=== PATIENT | female | born 1990 | race Caucasian/White ===

== ENCOUNTER 2024-01-24 04:58 | Emergency (ER) | payer BC, SELFPAY ==
[2024-01-24 05:01] VITALS: BP 115/90
--- NOTE | 2024-01-24 05:19 | ED.GENMED ---
History of Present Illness
<Zay Goel DO - Last Filed: 01/24/24 06:26>
General
Chief Complaint: Abdominal Pain
Source: patient and family
Exam Limitations: none
Time Seen by Provider: 01/24/24 05:14
Travel History
Have you had any contact with someone who has COVID-19?: No
Do you have any symptoms of coronavirus? Fever > 100 degrees, chills, cough, shortness of breath, sore throat, loss of taste or smell, muscle aches, or headache?: No
History of Present Illness
History of Present Illness:
33-year-old female presents with right upper quad abdominal pain. pt states that she had eaten some pizza and had some pain and seemed to be off normal got worse worse and constant at night. Patient admits that she had a 3 weeks ago but
has been healing well. Pain is severe in the right upper quadrant and epigastric area. She does admit to nausea. No fevers. Pain does radiate to her right back. She does have retained products required D&C
Past History
<Zay Goel DO - Last Filed: 01/24/24 06:26>
Past History
ED Past Surgical History:
Phy Exam
<Zay Goel DO - Last Filed: 01/24/24 06:26>
Physical Exam
Physical Exam:
CONSTITUTIONAL Patient alert and oriented to person, place and time. Well-appearing. Vital signs reviewed.
HEAD atraumatic, normocephalic.
EYES eyelids normal to inspection, Extraocular muscles intact, Conjunctiva normal, Sclera normal.
NECK normal range of motion, Trachea midline, no jugular venous distention.
RESPIRATORY CHEST No respiratory distress noted, Chest expansion equal, Bilateral breath sounds clear.
CARDIOVASCULAR regular rate and rhythm, Heart sounds normal.
ABDOMEN moderate to severe right upper quadrant tenderness, positive Zhang
BACK normal inspection, no obvious deformities
UPPER EXTREMITY range of motion normal, Motor strength normal, no cyanosis, no edema.
LOWER EXTREMITY range of motion normal, Motor strength normal, no cyanosis, no edema.
NEURO Speech normal, No focal motor deficits, [place] coma scale 15, Memory normal, Cranial Nerves intact to screening exam.
SKIN skin warm, dry, and normal in color.
Course
<Zay Goel, DO - Last Filed: 01/24/24 06:26>
Orders/Labs/Results
Orders:
Orders
01/24/24 05:10
Test Result ONCE
01/24/24 05:18
US Abdomen Complete/Upper Urgent
Comment:
Reason For Exam: RUQ abd pain
01/24/24 05:19
Ketorolac [Toradol] 15 mg IV NOW STA
01/24/24 05:24
Complete Blood Count/With Diff Urgent
Comprehensive Metabolic Panel Urgent
HCG, Serum Qualitative Screen Urgent
Lipase Urgent
Comment: ADD ON
Urine Microscopic Reflex Cult Urgent
Urine Reflex Culture from UA [Urinalysis Reflex To Culture] Urgent
Date Specimen was Collected: 01/24/24
Time Specimen was Collected: 05:09
Urine Culture Urgent
GIRISH Source: U
Specimen Description:
Date Specimen was Collected: 01/24/24
Time Specimen was Collected: 05:09
01/24/24 05:30
0.9% Sodium Chloride 1000 ml [Nss] 1,000 ml IV BOLUS
Ondansetron Injectable [Zofran] 4 mg IV NOW STA
01/24/24 05:52
Add On- LAB Urgent
Tests Added?: Lipase
01/24/24 07:13
Ondansetron Injectable [Zofran] 4 mg .ROUTE .STK-MED ONE
01/24/24 07:14
Ondansetron Injectable [Zofran] 4 mg IV NOW STA
01/24/24 08:09
Diphenhydramine [Benadryl] 25 mg IV NOW STA
Metoclopramide [Reglan] 10 mg IV NOW STA
Abnormal Lab Results
01/24/24
05:24
WBC 12.6 H 10^3/uL
(4.8-10.8)
RBC 3.96 L 10^6/uL
(4.20-5.40)
Hgb 11.0 L g/dL
(12.0-16.0)
Hct 33.0 L %
(37.0-47.0)
MPV 10.8 H fL
(7.4-10.4)
Abs Immat Gran (auto) 0.1 H 10^3/uL
(0-0.05)
Absolute Neuts (auto) 9.4 H 10^3/uL
(1.4-6.5)
Absolute Monos (auto) 0.7 H 10^3/uL
(0.1-0.6)
Lymphocytes % 16.2 L %
(20.5-51.1)
Glucose 114 H mg/dl
(70-99)
Ur Occult Blood Reflex 3+ A
(Negative)
Leukocyte Esterase Rfl Trace A
(Negative)
Urine RBC 3-6 A /HPF
(0-2)
Urine Bacteria (Reflex) Many A
(Negative)
01/24/24 05:24
01/24/24 05:24
Vital Signs
Initial and Last Documented VS:
Initial Vital Signs
Temp Pulse Resp BP Pulse Ox
97.7 F 84 22 115/90 100
01/24/24 05:01 01/24/24 05:01 01/24/24 05:01 01/24/24 05:01 01/24/24 05:01
Last Documented Vital Signs
Temp Pulse Resp BP Pulse Ox
97.7 F 89 16 116/72 99
01/24/24 05:01 01/24/24 08:30 01/24/24 08:30 01/24/24 08:30 01/24/24 08:30
<Alberto MaikCarleen Diego, DO - Last Filed: 01/24/24 14:13>
Orders/Labs/Results
Orders:
Orders
01/24/24 05:10
Test Result ONCE
01/24/24 05:18
US Abdomen Complete/Upper Urgent
Comment:
Reason For Exam: RUQ abd pain
01/24/24 05:19
Ketorolac [Toradol] 15 mg IV NOW STA
01/24/24 05:24
Complete Blood Count/With Diff Urgent
Comprehensive Metabolic Panel Urgent
HCG, Serum Qualitative Screen Urgent
Lipase Urgent
Comment: ADD ON
Urine Microscopic Reflex Cult Urgent
Urine Reflex Culture from UA [Urinalysis Reflex To Culture] Urgent
Date Specimen was Collected: 01/24/24
Time Specimen was Collected: 05:09
Urine Culture Urgent
GIRISH Source: U
Specimen Description:
Date Specimen was Collected: 01/24/24
Time Specimen was Collected: 05:09
01/24/24 05:30
0.9% Sodium Chloride 1000 ml [Nss] 1,000 ml IV BOLUS
Ondansetron Injectable [Zofran] 4 mg IV NOW STA
01/24/24 05:52
Add On- LAB Urgent
Tests Added?: Lipase
01/24/24 07:13
Ondansetron Injectable [Zofran] 4 mg .ROUTE .STK-MED ONE
01/24/24 07:14
Ondansetron Injectable [Zofran] 4 mg IV NOW STA
01/24/24 08:09
Diphenhydramine [Benadryl] 25 mg IV NOW STA
Metoclopramide [Reglan] 10 mg IV NOW STA
Abnormal Lab Results
01/24/24
05:24
WBC 12.6 H 10^3/uL
(4.8-10.8)
RBC 3.96 L 10^6/uL
(4.20-5.40)
Hgb 11.0 L g/dL
(12.0-16.0)
Hct 33.0 L %
(37.0-47.0)
MPV 10.8 H fL
(7.4-10.4)
Abs Immat Gran (auto) 0.1 H 10^3/uL
(0-0.05)
Absolute Neuts (auto) 9.4 H 10^3/uL
(1.4-6.5)
Absolute Monos (auto) 0.7 H 10^3/uL
(0.1-0.6)
Lymphocytes % 16.2 L %
(20.5-51.1)
Glucose 114 H mg/dl
(70-99)
Ur Occult Blood Reflex 3+ A
(Negative)
Leukocyte Esterase Rfl Trace A
(Negative)
Urine RBC 3-6 A /HPF
(0-2)
Urine Bacteria (Reflex) Many A
(Negative)
01/24/24 05:24
01/24/24 05:24
Vital Signs
Initial and Last Documented VS:
Initial Vital Signs
Temp Pulse Resp BP Pulse Ox
97.7 F 84 22 115/90 100
01/24/24 05:01 01/24/24 05:01 01/24/24 05:01 01/24/24 05:01 01/24/24 05:01
Last Documented Vital Signs
Temp Pulse Resp BP Pulse Ox
97.7 F 89 16 116/72 99
01/24/24 05:01 01/24/24 08:30 01/24/24 08:30 01/24/24 08:30 01/24/24 08:30
<Zay Goel DO - Last Filed: 01/24/24 06:26>
MDM/Problems Addressed
MDM/Problems Addressed:
Biliary colic
<Zay Goel DO - Last Filed: 01/24/24 06:26>
*Pulse Oximetry
Patient hypoxic: no
*Critical Care Note
Total Time (30-74mins, 75-104mins- exclusive of procedures): Not Applicable
Data Reviewed
Source: patient and family
Further Testing Considered But Not Given:
Consider CT but suspect biliary colic. Ultrasound pending
<Zay Goel DO - Last Filed: 01/24/24 06:26>
Patient Management
Escalation/DeEscalation of care consider admission/obs:
Patient did proceed to vomiting. Now does feel better after Zofran and IV Toradol. IV fluids given. Ultrasound pending. Dispo per ultrasound
<Alberto Diego DO - Last Filed: 01/24/24 14:13>
Update Note
Update Note:
u/s shows distended gall bladder but no signs of stones or inflammation. Pt feeling better after a dose of Reglan. Stable for discharge home......suspect biliary colic.
f/u with primary and given name for surgery for follow up if recurring.
ED Attending Note
<Zay Goel DO - Last Filed: 01/24/24 06:26>
-
Portions of this chart may have been created with voice recognition software.� Occasional wrong word or��sound alike� substitutions may have occurred due to the inherent limitations of voice recognition software.
Discharge Plan
Departure
Patient Disposition: Home (Routine Discharge)
Date of Disposition: 01/24/24
Time of Disposition: 09:10
Patient with high blood pressure during this ER visit?: No
Condition: Good
Discharge Problem:
Abdominal pain, Biliary colic
Instructions: Gallstones (DC), Abdominal Pain
Referrals:
Stone Lang MD [Active] -
Jed Garcia, [Family Provider] -
Activity Restrictions/Additional Instructions:
I suspect your abdominal pain as due to biliary colic (spasm of the gall bladder). Stones are not seen on the ultrasound but sometimes they are too small to see. This sometimes happens after . I have given you the name of a surgeon that
you can follow up with, particularly if you have more episodes.
Interventions
Interventions:
*Risk Screen - Suicide Last Done: 01/24/24 09:06
*General Assessment Last Done: 01/24/24 07:19
*Neglect/Abuse Screening Last Done: 01/24/24 09:06
ED- Fall Risk Assessment Last Done: 01/24/24 05:40
*ED COVID-19 Vaccine History Last Done: 01/24/24 07:19
*Nursing Disposition Last Done: 01/24/24 09:49
JU-Kwpoat-Dnacieyhjt Assessment Last Done: 01/24/24 05:40
Discharge Date and Time
Discharge Date/Time: 01/24/24 09:50
Print Language: CAMBODIAN
[2024-01-24] MEDS: TORADOL 15 MG IV (05:23)
[2024-01-24] MEDS: NSS 1000 IV (05:31)
[2024-01-24] MEDS: ZOFRAN 4 MG IV ×2 (05:31→07:14)
[2024-01-24 05:38] LABS: % Basophils 0.4 % (0-2); % Eosinophils 2.9 % (0-6); % Immature Granulocytes 0.4 % (0-0.5); % Lymphocytes 16.2 % (20.5-51.1); % Monocytes 5.2 % (1.7-9.3); % Neutrophils 74.9 % (42.2-75.2); Absolute Basophils 0.1 10^3/uL (0-0.2); Absolute Eosinophils 0.4 10^3/uL (0-0.7); Absolute Immature Granulocytes 0.1 10^3/uL (0-0.05); Absolute Monocytes 0.7 10^3/uL (0.1-0.6); Absolute Neutrophils 9.4 10^3/uL (1.4-6.5); Mean Corp Hgb Conc. 33.3 g/dL (33.0-37.0); Mean Corpuscular Hgb 27.8 pg (27.0-31.0); Mean Corpuscular Volume 83.3 fL (81.0-99.0); Mean Platelet Volume 10.8 fL (7.4-10.4); Nucleated Red Blood Cells % 0 %; Platelet Count 216 10^3/uL (130-400); Red Blood Cell Count 3.96 10^6/uL (4.20-5.40); Red Cell Dist. Width 12.3 % (11.5-14.5); White Blood Cell Count 12.6 10^3/uL (4.8-10.8)
[2024-01-24 05:51] LABS: HCG, Serum Qualitative Screen Negative
[2024-01-24 05:57] LABS: ALT (SGPT) 15 U/L (0-35); AST (SGOT) 22 U/L (14-36); Albumin 4.2 g/dl (3.5-5.0); Alkaline Phosphatase 111 U/L (38-126); Blood Urea Nitrogen 14 mg/dl (7-17); Calcium 9.8 mg/dl (8.4-10.2); Carbon Dioxide 22 mmol/L (22-30); Chloride 105 mmol/L (98-107); Glucose 114 mg/dl (70-99); Sodium 139 mmol/L (135-145); Total Bilirubin 0.4 mg/dl (0.2-1.3); eGFR > 60.00
[2024-01-24 06:18] LABS: Lipase 146 U/L (23-300)
[2024-01-24] MEDS: BENADRYL 25 MG IV (08:20)
[2024-01-24] MEDS: REGLAN 10 MG IV (08:21)
[2024-01-24 08:30] VITALS: BP 116/72
[2024-01-24 08:30] LABS: Urine Albumin Negative (Neg - Trace); Urine Bilirubin Negative (Negative); Urine Character Clear (Clear); Urine Color Yellow; Urine Glucose Negative (Negative); Urine Ketone Negative (Negative); Urine Leukocyte Trace (Negative); Urine Nitrite Negative (Negative); Urine Occult Blood 3+ (Negative); Urine Urobilinogen Negative (Neg - 1+)
[2024-01-24 08:52] LABS: Urine Bacteria Many (Negative)
== END 2024-01-24 09:50 | disposition home or self-care (01) ==
LOC: EMR 04:58
PROVIDERS: EMERGENCY PHYSICIAN Emergency Medicine; FAMILY PHYSICIAN Family Medicine
DX: R10.11 Right upper quadrant pain (principal); K80.50 Calculus of bile duct without cholangitis or cholecystitis without obstruction
CPT/HCPCS: 99284; 96374; 96375; 96376; 96361; 76700; 80053; 81003; 81015; 83690; 84703; 85025; 87086

== ENCOUNTER → 2024-05-17 07:26 | Outpatient (REF) | payer BC, SELFPAY | LOC: HWRAD 07:26 | PROVIDERS: ATTENDING PHYSICIAN Surgery; FAMILY PHYSICIAN Family Medicine | DX: R10.11 Right upper quadrant pain (principal) | CPT/HCPCS: 76700 ==

== ENCOUNTER 2024-05-31 03:41 | Day surgery (SDC) | payer BC, SELFPAY ==
[2024-05-30 21:53] VITALS: BP 145/93
[2024-05-30 22:12] LABS: % Basophils 0.5 % (0-2); % Eosinophils 1.3 % (0-6); % Immature Granulocytes 0.4 % (0-0.5); % Lymphocytes 24.9 % (20.5-51.1); % Monocytes 6.9 % (1.7-9.3); Absolute Basophils 0.1 10^3/uL (0-0.2); Absolute Eosinophils 0.1 10^3/uL (0-0.7); Absolute Lymphocytes 2.5 10^3/uL (1.2-3.4); Absolute Monocytes 0.7 10^3/uL (0.1-0.6); Absolute Neutrophils 6.6 10^3/uL (1.4-6.5); Hematocrit 37.4 % (37.0-47.0); Hemoglobin 12.7 g/dL (12.0-16.0); Mean Corpuscular Hgb 28.1 pg (27.0-31.0); Mean Corpuscular Volume 82.7 fL (81.0-99.0); Nucleated Red Blood Cells % 0 %; Platelet Count 212 10^3/uL (130-400); Red Blood Cell Count 4.52 10^6/uL (4.20-5.40); Red Cell Dist. Width 13.6 % (11.5-14.5)
[2024-05-30 22:28] LABS: ALT (SGPT) 22 U/L (0-35); AST (SGOT) 25 U/L (14-36); Albumin 4.7 g/dl (3.5-5.0); Alkaline Phosphatase 81 U/L (38-126); Blood Urea Nitrogen 15 mg/dl (7-17); Calcium 9.9 mg/dl (8.4-10.2); Carbon Dioxide 24 mmol/L (22-30); Chloride 102 mmol/L (98-107); Glucose 109 mg/dl (70-99); Potassium 4.4 mmol/L (3.5-5.1); Sodium 141 mmol/L (135-145); Total Bilirubin 0.4 mg/dl (0.2-1.3); Total Protein 7.6 g/dl (6.3-8.2); eGFR > 60.00
[2024-05-30 22:30] LABS: Lipase 121 U/L (23-300)
[2024-05-31] VITALS (18 sets, daily range): BP systolic 104–154; BP diastolic 71–98; BMI 31.1
[2024-05-31] MEDS: ZOFRAN 4 MG IV ×2 (00:42→15:30)
[2024-05-31] MEDS: TORADOL 30 MG IV (00:42)
[2024-05-31] MEDS: NSS 1000 IV (00:43)
--- NOTE | 2024-05-31 01:20 | ED.GENMED ---
History of Present Illness
General
Chief Complaint: Abdominal Pain
Source: patient and spouse
Exam Limitations: none
Time Seen by Provider: 05/31/24 00:00
Nursing documentation reviewed up to this point in time: agreed with
History of Present Illness
History of Present Illness:
33-year-old female presenting to the emergency department today with concerns of right upper quadrant Rich pain persisting over the past few hours. Has had previous issues with her gallbladder and had previous gallbladder stones. Denies any
chest pain shortness breath or fevers. Has had nausea and vomiting.
Past History
Past History
ED Past Surgical History:
Review of Systems
Review of Systems
Allergies reviewed?: Yes
All Other Systems: ROS reviewed and negative except as documented in HPI and ROS
Phy Exam
Physical Exam
Physical Exam:
GENERAL: Alert , in no apparent distress
EYE: pupils equal and reactive
NECK: Supple, no significant adenopathy.
ENT: o/p clr, mmm.
CARDIAC: Regular rate and rhythm .
LUNGS: Clear breath sounds bilaterally, no acute respiratory distress, no wheezes/rales/rhonchi
ABDOMEN: Upper quadrant abdominal tenderness, positive Zhang's. Otherwise soft abdomen.
NEUROLOGICAL: Alert and oriented, no focal neuro deficits
SKIN: Warm and dry, skin intact.
MUSCULOSKELETAL: No edema, well perfused.
PSYCH: Normal and appropriate interaction.
Course
Orders/Labs/Results
Orders:
Orders
05/30/24 21:58
Complete Blood Count/With Diff Urgent
Comprehensive Metabolic Panel Urgent
HCG, Serum Qualitative Screen Urgent
Comment: ADD ON
Lipase Urgent
05/31/24 00:34
US Abdomen Complete/Upper Urgent
Comment:
Reason For Exam: ruq pain
05/31/24 00:35
Add On- LAB Urgent
Tests Added?: hcg serum
0.9% Sodium Chloride 1000 ml [Nss] 1,000 ml IV BOLUS
Ketorolac [Toradol] 30 mg IV NOW STA
Ondansetron Injectable [Zofran] 4 mg IV NOW STA
05/31/24 01:51
HYDROmorphone [Dilaudid] 0.5 mg IV NOW STA
05/31/24 01:53
HYDROmorphone [Dilaudid] 0.5 mg .ROUTE .STK-MED ONE
05/31/24 01:55
Piperacillin/Tazo 3.375 Gram [Zosyn] 3.375 gram in 50 ml IV NOW
Abnormal Lab Results
05/30/24
21:58
MPV 11.0 H fL
(7.4-10.4)
Absolute Neuts (auto) 6.6 H 10^3/uL
(1.4-6.5)
Absolute Monos (auto) 0.7 H 10^3/uL
(0.1-0.6)
Glucose 109 H mg/dl
(70-99)
05/30/24 21:58
05/30/24 21:58
Vital Signs
Initial and Last Documented VS:
Initial Vital Signs
Temp Pulse Resp BP Pulse Ox
97.6 F 70 18 145/93 96
05/30/24 21:53 05/30/24 21:53 05/30/24 21:53 05/30/24 21:53 05/30/24 21:53
Last Documented Vital Signs
Temp Pulse Resp BP Pulse Ox
97.6 F 77 18 130/80 97
05/30/24 21:53 05/31/24 02:03 05/30/24 21:53 05/31/24 02:03 05/31/24 02:03
MDM/Problems Addressed
MDM/Problems Addressed:
33-year-old female presenting to the emergency department today with concerns of right upper quadrant abdominal pain. Reproducible tenderness to the right upper quadrant. On arrival vital signs are normal patient no distress afebrile normal white
count labs unremarkable. Ultrasound performed showing possible early acute cholecystitis. Patient with worsening right upper quadrant . Patient given dose of IV pain medication but otherwise will be admitted to general surgery service. Case
discussed with general surgery that would like patient n.p.o. given IV fluids and Zosyn. Stable throughout ER stay.
*Critical Care Note
Total Time (30-74mins, 75-104mins- exclusive of procedures): Not Applicable
ED Attending Note
-
Portions of this chart may have been created with voice recognition software.� Occasional wrong word or��sound alike� substitutions may have occurred due to the inherent limitations of voice recognition software.
Discharge Plan
Departure
Patient Disposition: Admit
Date of Disposition: 05/31/24
Time of Disposition: 02:10
Admit to: Med/Surg
Admit to doctor: Gavino
Presentation/result/management discussed w/ accepting MD/DO: Surgery
Patient with high blood pressure during this ER visit?: No
Condition: Good
Covid-19: Not Applicable
Discharge Problem:
Acute cholecystitis
Referrals:
Jed Garcia DO [Family Provider] -
Interventions
Interventions:
*Risk Screen - Suicide Last Done: 05/31/24 00:27
*General Assessment Last Done: 05/30/24 21:53
*ED COVID-19 Vaccine History Last Done: 05/31/24 00:27
UI-Lahszn-Byiayjnlln Assessment Last Done: 05/31/24 00:31
Discharge Date and Time
Print Language: SAMMARINESE
[2024-05-31 01:28] LABS: HCG, Serum Qualitative Screen Negative
[2024-05-31] MEDS: DILAUDID 0.5 MG IV ×2 (01:54→18:05)
[2024-05-31] MEDS: ZOSYN 50 IV ×4 (02:01→21:53)
[2024-05-31] MEDS: FLUSH (NSS) 1 FLUSH IV (07:45)
--- NOTE | 2024-05-31 09:29 | HPS.HSE ---
Family Physician
-
Family Physician: Jed Garcia
Chief Complaint
-
RUQ abdominal pain
History of Present Illness
Patient is a 33 yo F with a PMH of obesity, s/p , and biliary colic who presents with RUQ abdominal pain. Annmarie states that her symptoms began acutely yesterday evening. Currently she states that her pain is improved, but not
completely resolved. Diet yesterday consisted of turkey sandwich with roasted red peppers as well as breaded chicken fingers with rice. Associated nausea or vomiting. No fevers or chills. No jaundice, pale stools, or tea colored urine. Of note,
patient has been followed by myself as an outpatient with recommendation and plans for elective cholecystectomy.
Medical History
Past Medical History
Past Medical History: Reports Other (Obesity)
Past Surgical History: Reports
Social History
Tobacco: Non-smoker
Alcohol: Occasional
Drug: None
Family History
Family History: Other (Cholecystectomy)
Allergies / Home Medications
Allergies reflects when Allergies were last updated in [employer].
Home Medications with original date entered in [employer]
Allergy/Medication List:
NKDA
Review of Systems
-
A 12 point ROS was completed and negative except as noted: Yes
Physical Exam
Vital Signs
Vital Signs
Temp Pulse Resp BP Pulse Ox
98.5 F 64 16 111/71 98
05/31/24 07:39 05/31/24 07:39 05/31/24 07:39 05/31/24 07:39 05/31/24 07:42
Physical Exam
General: Well Developed, Well Nourished and No Apparent Distress
HEENT: NormoCephalic and Anicteric
Respiratory: Non Labored Respirations
Cardiac: Regular Rhythm
GI: Soft, Non Distended, Tender (Mild RUQ, negative Zhang sign) and Other (Nonperitoneal (no rebound or guarding))
Musculoskeletal: No Edema
Neuro: Nonfocal/grossly intact
Laboratory Results
-
05/30/24 21:58
05/30/24 21:58
Laboratory Results
Total Bilirubin 0.4 mg/dl (0.2-1.3) 05/30/24 21:58
AST 25 U/L (14-36) 05/30/24 21:58
ALT 22 U/L (0-35) 05/30/24 21:58
Alkaline Phosphatase 81 U/L (38-126) 05/30/24:58
Lipase 121 U/L (23-300) 05/30/24 21:58
Data Reviewed
-
Ultrasound: Image Personally Visualized and interpreted
Lab Data: Labs Reviewed by me
Old Records: Reviewed
Impression/Plan
-
IMPRESSION:
Patient is a 33 yo F p/w symptomatic cholelithiasis
The natural history and pathophysiology of biliary and stone disease has been previously discussed. Previous plans for outpatient cholecystectomy. Given her persistent symptoms and presentation recommend cholecystectomy during this presentation.
Option for repeat trial of medical management with delayed cholecystectomy were reviewed. Pros and cons of both approaches was discussed. Patient wishes to proceed with cholecystectomy.
Plan for a laparoscopic cholecystectomy with possible cholangiogram. The procedure itself, as well as the risks, benefits, and alternatives was discussed. Specifically, we discussed the risks of bleeding, infection, injury to surrounding
structures (bowel, bile ducts), CBD injury, need for open procedure. Typical postprocedure recovery including 2 weeks no heavy lifting or strenuous activities in the 10 to 20% risks of fluctuation in GI function were discussed. All questions
answered. Consent signed.
PLAN:
-- Laparoscopic cholecystectomy possible cholangiogram
-- NPO, IVF
-- Abx: Zosyn
-- Pain control: Tylenol and IV Dilaudid PRN
-- Admit post-op
--- NOTE | 2024-05-31 09:36 | W.SUR.PREOP ---
Pre-Operative Surgical Note
-
I have examined this patient prior to the performance of the scheduled procedure.
The patient's condition is unchanged from the time of the current History and
Physical and the patient is able to undergo the scheduled procedure.
--- NOTE | 2024-05-31 14:03 | W.IMMPOSTOP ---
Addendum entered and electronically signed by Arley Nickerson MD 05/31/24 14:11:
[facility]# [id number]
Original Note:
Surgical Immed Post Op Note
-
Primary Surgeon: Krishan
Assisting Surgeon: None
Pre-op Diagnosis: Acute cholecystitis
Post-op Diagnosis: Acute cholecystitis
Procedure Performed: Laparoscopic cholecystectomy with IOC
Anesthesia Type: General
Specimen / Cultures:
1. Gallbladder
Estimated Blood Loss: 3 cc
Complications: None
Operative Findings:
1. Mild acute inflammation, wall thickening and edema
2. Critical view
3. IOC negative
4. Artery and duct taken with clips
[2024-05-31] MEDS: NORMOSOL-R/PLASMALYTE-A 1000 IV (15:47)
[2024-05-31] MEDS: TORADOL 10 MG IV (20:58)
[2024-06-01] MEDS: TORADOL 10 MG IV ×2 (03:17→09:18)
[2024-06-01] MEDS: ZOSYN 50 IV ×2 (04:07→09:05)
[2024-06-01] MEDS: DILAUDID 0.5 MG IV (04:13)
--- NOTE | 2024-06-01 04:52 | DOWNTIME ---
There was a [employer] Downtime on 06/01/2024 from 0100 to 06/01/2024 at 0355. Downtime documentation of patient's care, including medication administrations, has been reconciled in the electronic record per guidelines. Refer to the
patient's paper chart under the miscellaneous tab to see printed paper medication records and downtime forms.
--- NOTE | 2024-06-01 07:32 | W.PN.GS2 ---
Today's Communication / Plan
-
-- DC today
Assessment / Plan
-
Patient is a 33 y F POD#1 s/p laparoscopic cholecystectomy with IOC
Recovering well. No postoperative concerns.
-- LFD
-- Pain control: Tylenol, Toradol, Oxycodone
-- HLIV
-- Antibiotics: None further needed
-- DVT: Lovenox
-- DC today
Subjective Data
-
Date of Service: June 01, 2024
Reports abdominal soreness, well-controlled with the medication. No nausea or vomiting. No fevers or chills. Voiding. Ambulating.
Objective Data
-
Intake and Output
05/31/24 06/01/24 06/02/24
06:59 06:59 06:59
Intake Total 1150 / 1150
Balance 1150 / 1150
Intake:
IV fluids (Total) 1000 / 1000
Normosal 100 / 100
IV piggybacks 150 / 150
Other:
Number of approximated MODERATE 3
amounts of urine
Number of approximated LARGE 1
amounts of urine
Vital Signs
Temp Pulse Resp BP Pulse Ox
98.3 F 78 14 131/84 97
05/31/24 23:18 05/31/24 23:18 05/31/24 23:18 05/31/24 23:18 05/31/24 23:29
Lab Results
05/30/24 21:58
05/30/24 21:58
Calcium 9.9 mg/dl (8.4-10.2) 05/30/24 21:58
Total Bilirubin 0.4 mg/dl (0.2-1.3) 05/30/24 21:58
AST 25 U/L (14-36) 05/30/24 21:58
ALT 22 U/L (0-35) 05/30/24 21:58
Alkaline Phosphatase 81 U/L (38-126) 05/30/24 21:58
Total Protein 7.6 g/dl (6.3-8.2) 05/30/24 21:58
Albumin 4.7 g/dl (3.5-5.0) 05/30/24 21:58
Physical Exam
-
Gen: NAD
Abd: soft, NT/ND, non-peritoneal, incisions c/d/i � no erythema, ecchymosis, or drainage
[2024-06-01 07:40] VITALS: BP 119/83
--- NOTE | 2024-06-01 08:55 | CM ---
Reviewed chart notes. Patient resides with her spouse in a two story home. The patient reports no DME/VN/SNF in the past. The patient anticipates being discharged to home with no anticipated needs being identified at this time. CM continues to
be available to patient/family and is monitoring medical plan for needs at discharge.
Plan: Discharge to home. Patient's family will transport.
--- NOTE | 2024-06-01 13:09 | CM ---
met with patient at bedside.patient will dc home with no needs.family to transport home.
== END 2024-06-01 13:14 | disposition home or self-care (01) ==
LOC: PACU 03:41
PROVIDERS: Emergency Medicine; ATTENDING PHYSICIAN Surgery; EMERGENCY PHYSICIAN Emergency Medicine; FAMILY PHYSICIAN Family Medicine
DX: K80.10 Calculus of gallbladder with chronic cholecystitis without obstruction (principal); K80.00 Calculus of gallbladder with acute cholecystitis without obstruction
CPT/HCPCS: 47563; 88304; 74300; 76000; 76700; 80053; 83690; 84703; 85025; 96361; 96365; 96375; 99285; A4300; G0378